=== PATIENT | female | born 2005 | race Caucasian/White ===

== ENCOUNTER 2023-05-13 15:08 | Outpatient (REF) | payer MEDICAID, SELFPAY ==
[2023-05-13 17:18] LABS: MANUAL DIFF FLAG NO
[2023-05-13 17:20] LABS: Basophils Percent Auto 0.4 % (0-2); Eosinophils Absolute Auto 0.2 X10*3/uL (0.0-0.4); Eosinophils Percent Auto 2.7 % (0-4); Hematocrit 36.7 % (37.0-47.0); Hemoglobin 11.8 g/dl (12.0-16.0); Imm Gran Abs Auto 0.01 X10*3/uL (0.00-0.03); Imm Gran Pct Auto 0.2 % (0.0-0.4); Lymphocytes Absolute Auto 1.8 X10*3/uL (1.2-4.9); Lymphocytes Percent Auto 32.3 % (20-40); Mean Corpuscular HGB Conc 32.2 g/dl (31.0-35.0); Mean Corpuscular Hemoglobin 26.9 pg (27.0-33.0); Mean Corpuscular Volume 83.6 fL (80.0-98.0); Mean Platelet Volume 10.6 fL (9.4-12.3); Monocytes Absolute Auto 0.3 X10*3/uL (0.1-1.2); Monocytes Percent Auto 5.4 % (2-11); Neutrophils Absolute Auto 3.3 x10*3/uL (2.0-8.3); Platelet Count 311 X10*3/uL (160-400); Red Blood Count 4.39 X10*6/uL (4.20-5.50); White Blood Count 5.5 X10*3/uL (4.8-10.8)
[2023-05-13 17:37] LABS: Anion Gap 11 (12-20); Blood Urea Nitrogen 10 mg/dL (9-16); Calcium 9.8 mg/dL (8.4-10.2); Carbon Dioxide 26 mmol/L (22-29); Chloride 107 mmol/L (96-108); Estimated Glomerular Filt Rate > 60; Glucose Random 90 mg/dL (60-115); Potassium 4.1 mmol/L (3.3-5.1); Sodium 140 mmol/L (135-145)
[2023-05-13 17:54] LABS: Vitamin D 25-OH Total 11.8 ng/mL (>30)
[2023-05-13 18:02] LABS: Vitamin B12 298 pg/mL (200-900)
[2023-05-15 22:14] LABS: TS Negative Control Passed; TS Panel A 0; TS Panel B 0; TS Positive Control Passed; TSpotTB Negative (Negative)
[2023-05-21 13:58] LABS: ANA Titer 2 1:40 titer; Anti Nuclear Antibody Pattern Mitotic, Centrosome; Anti Nuclear Antibody Screen POSITIVE (NEGATIVE); Anti Nuclear Antibody Titer 1:40 titer
== END 2023-05-13 15:09 | disposition home or self-care (01) ==
LOC: HO.CHCLDS 15:08
PROVIDERS: Visit Provider Pediatrics
DX: Z11.1 Encounter for screening for respiratory tuberculosis (principal); L65.9 Nonscarring hair loss, unspecified
CPT/HCPCS: 36415; 80048; 82306; 82607; 85025; 86038; 86039; 86481

== ENCOUNTER 2023-08-23 15:00 | Outpatient (AMB) | payer MEDICAID, SELFPAY ==
--- NOTE | 2023-08-23 15:02 | MHC.OFFVIS ---
Intake Vital Signs 08/23/23 15:03 Height 5 ft 6 in Weight 144 lb 6.444 oz BMI 23.3 BP 104/60 Blood Pressure Location Rt brachial Position Sitting Pulse 111 H Pulse Source Pulse Oximeter Intake Visit Reasons: + LYNNETTE Intake Note: New pt presents today for +LYNNETTE consult. C/o hair loss Grocery Manager Required: No Accompanied by: Self / Same As Patient Allergies No Known Allergies Allergy (Verified 08/23/23 15:04) Medication List - Last Reconciled 08/23/23 by Mayra Wall MD cetirizine 10 mg PO DAILY PRN ergocalciferol (vitamin D2) 1,250 mcg PO QWEEK HPI HPI Comments History of Present Illness Details This is a 18-year-old Citizen Of The [place] female who presents for evaluation of a positive LYNNETTE. Patient stated that she went to [facility] and this summer, she spent about 3 months. It was for her sister's wedding. She states that she does not go to [facility] frequently. She states that when she is there. She cannot eat well as the food is too spicy and there is plenty of street food. She lost about 20 lb while in [place] and she was feeling weak. She also had lice in her hair, this was treated with shampoo. When [place] the [place] in the middle of April she had lost about 20 lb. She is gaining the weight back, she gained about 14 lb back. She was having hair loss. She was evaluated by her PCP and labs showed a positive LYNNETTE. She states that she has been using or else for her hair and the hair loss has almost resolved. She mentions that she had recurrent ear infections as a child. She had 2 ear infections while in [place] had fevers and required 2 courses of antibiotics. She states that she has been having intermittent rashes on her nose, sometimes itchy. She denies any current fevers. She denies any mouth ulcers. She has never been or attempt . She denies any history of DVT/PE. Denies any blood or froth in urine, denies any history suggestive of Raynaud's. She is unaware of any family history of an autoimmune rheumatic disease. 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 Female Reproductive History Menstrual Total pregnancies: 0 Review of Systems Musc Denies arthralgias Skin/Breast Reports pruritus and Reports rash Physical Exam Vital Signs: Last Vital Signs Pulse 111 H 08/23/23 15:03 BP 104/60 08/23/23 15:03 BMI result Body Mass Index 23.3 Const General: cooperative, healthy appearing and comfortable Nutritional Appearance: average body habitus Orientation/consciousness: patient oriented x3 Limitations: no limitations HEENT Head: Yes normocephalic and Yes atraumatic Mouth: moist mucous membranes Resp Effort & Inspection: normal respiratory effort and able to speak in complete sentences Auscultation: clear to auscultation bilaterally Cardio Rate: regular rate Rhythm: regular rhythm GI Inspection: No distended Palpation (GI): Soft to palpation Skin Other: Erythematous rashes on her nose Neuro General: patient oriented x3 Extrem Other: Mildly hyper flexible No active synovitis Normal nailfold capillaroscopy Assessment & Plan Assessment & Plan (1) LYNNETTE positive: Code(s): R76.8 - Other specified abnormal immunological findings in serum Plan: This is a 18-year-old female who presents for evaluation of a positive LYNNETTE. History of weight loss while in back is sent for 3 months (generally cannot eat much food over there.) She has a few rashes on her face, she had history of hair loss but it seems to have resolved. Will order comprehensive serology to evaluate for underlying autoimmune rheumatic disease. Follow-up after blood work is completed Plan I spent 46 minutes reviewing patient's chart, evaluating patient, ordering diagnostic workup, counseling patient and documenting in the chart Orders: Orders Anti Extractable Nuclear Ag Today M32.9 - Systemic lupus erythematosus, unspecified Anti DNA DS Antibody Today M32.9 - Systemic lupus erythematosus, unspecified Erythrocyte Sedimentation Rate Today M32.9 - Systemic lupus erythematosus, unspecified Complete Blood Count Auto Diff Today M32.9 - Systemic lupus erythematosus, unspecified Beta-2 Glycoprotein Antibody Today D68.61 - Antiphospholipid syndrome Cardiolipin Antibodies Today D68.61 - Antiphospholipid syndrome Lupus Anticoagulant Panel Today D68.61 - Antiphospholipid syndrome Thyroglobulin Antibodies Today E07.9 - Disorder of thyroid, unspecified Complement C4 Today M32.9 - Systemic lupus erythematosus, unspecified Complement C3 Today M32.9 - Systemic lupus erythematosus, unspecified DNA Double Stranded-Crithidia Today M32.9 - Systemic lupus erythematosus, unspecified Protein Creatinine Ratio, Ur Today M32.9 - Systemic lupus erythematosus, unspecified Sjogren's Antibodies Today M32.9 - Systemic lupus erythematosus, unspecified UA w Microscopic Today M32.9 - Systemic lupus erythematosus, unspecified Comprehensive Met. Panel Today M32.9 - Systemic lupus erythematosus, unspecified C Reactive Protein Today M32.9 - Systemic lupus erythematosus, unspecified Rheumatoid Factor Today M32.9 - Systemic lupus erythematosus, unspecified Thyroid Peroxidase Antibodies Today E07.9 - Disorder of thyroid, unspecified TSH reflex Free T4 Today E07.9 - Disorder of thyroid, unspecified Coding Level of Care Code New Pt Level 4 (66170) Diagnoses LYNNETTE positive R76.8
[2023-08-23 15:03] VITALS: BP 104/60; PULSE 111; BMI 23.3
== END 2023-08-23 15:32 | disposition home or self-care (01) ==
PROVIDERS: PCP Pediatrics; Referring Provider Pediatrics; Visit Provider Student in an Organized Health Care Education/Training Program
DX: R76.8 Other specified abnormal immunological findings in serum (principal)
CPT/HCPCS: 99204

== ENCOUNTER → 2023-08-23 15:00 | Outpatient (BNVA) | payer MEDICAID, SELFPAY | PROVIDERS: PCP Pediatrics; Referring Provider Pediatrics; Visit Provider Student in an Organized Health Care Education/Training Program | DX: R76.8 Other specified abnormal immunological findings in serum (principal) | CPT/HCPCS: 99202 ==

== ENCOUNTER 2023-09-15 11:50 | Outpatient (REF) | payer MEDICAID, SELFPAY ==
[2023-09-15 12:18] LABS: MANUAL DIFF FLAG NO
[2023-09-15 12:24] LABS: Basophils Percent Auto 0.5 % (0-2); Eosinophils Absolute Auto 0.1 X10*3/uL (0.0-0.4); Eosinophils Percent Auto 2.1 % (0-4); Hematocrit 38.2 % (37.0-47.0); Hemoglobin 12.6 g/dl (12.0-16.0); Imm Gran Abs Auto 0.01 X10*3/uL (0.00-0.03); Imm Gran Pct Auto 0.2 % (0.0-0.4); Lymphocytes Absolute Auto 2.4 X10*3/uL (1.2-4.9); Lymphocytes Percent Auto 41.7 % (20-40); Mean Corpuscular Hemoglobin 27.6 pg (27.0-33.0); Mean Corpuscular Volume 83.8 fL (80.0-98.0); Mean Platelet Volume 9.9 fL (9.4-12.3); Monocytes Absolute Auto 0.2 X10*3/uL (0.1-1.2); Monocytes Percent Auto 3.5 % (2-11); Platelet Count 289 X10*3/uL (160-400); Red Blood Count 4.56 X10*6/uL (4.20-5.50); Red Cell Distribution Width 13.3 % (11.0-16.0); White Blood Count 5.7 X10*3/uL (4.8-10.8)
[2023-09-15 12:50] LABS: Rheumatoid Factor < 13.0 IU/mL (<15.0)
[2023-09-15 13:02] LABS: Alanine Aminotransferase 11 U/L (0-31); Albumin Level 4.5 g/dL (3.5-5.0); Alkaline Phosphatase 70 U/L (39-117); Anion Gap 14 (12-20); Aspartate Amino Transferase 18 U/L (5-31); Bilirubin Total 0.4 mg/dL (0.0-1.0); Blood Urea Nitrogen 13 mg/dL (9-16); C Reactive Protein 0.56 mg/dL (< or = 0.50); Calcium 9.3 mg/dL (8.4-10.2); Carbon Dioxide 23 mmol/L (22-29); Chloride 107 mmol/L (96-108); Estimated Glomerular Filt Rate > 60; Glucose Random 95 mg/dL (60-115); Potassium 3.8 mmol/L (3.3-5.1); Sodium 140 mmol/L (135-145); Total Protein 7.9 g/dL (6.5-8.0)
[2023-09-15 13:16] LABS: Erythrocyte Sedimentation Rate 16 MM/HR (0-20)
[2023-09-17 02:28] LABS: Thyroglobulin Antibodies 1 IU/mL (< or = 1); Thyroid Peroxidase Antibodies 13 IU/mL (<9)
[2023-09-17 10:38] LABS: Complement C3 161 mg/dL (83-193)
[2023-09-17 13:24] LABS: Anti DNA DS Antibody <1 IU/mL; Antibody to SS-A Antigen <1.0 NEG AI (<1.0 NEG); Antibody to SS-B Antigen <1.0 NEG AI (<1.0 NEG); SM/Ribonucleoprotein Ab <1.0 NEG AI (<1.0 NEG); Smith Protein <1.0 NEG AI (<1.0 NEG)
[2023-09-17 13:28] LABS: Cardiolipin IgG Ab <2.0 GPL-U/mL; Cardiolipin IgM Ab <2.0 MPL-U/mL
[2023-09-20 10:48] LABS: Cyclic Citrullinated Peptide <16 UNITS
[2023-09-22 08:09] LABS: DNAds, Crithidia Antibody Negative (Negative)
[2023-09-22 21:34] LABS: PTT (LAC) Screen 35 sec (<=40)
[2023-09-23 15:59] LABS: Beta-2 Glycoprotein IgA <2.0 U/mL (<20.0); Beta-2 Glycoprotein IgG <2.0 U/mL (<20.0); Beta-2 Glycoprotein IgM <2.0 U/mL (<20.0)
== END 2023-09-15 11:51 | disposition home or self-care (01) ==
LOC: HO.LAB 11:50
PROVIDERS: PCP Pediatrics; Visit Provider Student in an Organized Health Care Education/Training Program
DX: M32.9 Systemic lupus erythematosus, unspecified (principal); M25.50 Pain in unspecified joint; D68.61 Antiphospholipid syndrome; E07.9 Disorder of thyroid, unspecified
CPT/HCPCS: 36415; 80053; 84443; 85025; 85597; 85598; 85613; 85652; 85730; 86140; 86146; 86147; 86160; 86200; 86225; 86235; 86255; 86376; 86431; 86800

== ENCOUNTER 2023-10-26 14:28 | Outpatient (REF) | payer MEDICAID, SELFPAY ==
[2023-10-27 02:28] LABS: HBS Num1 > 1000.00 mIU/mL (0-7.99); ~Hepatitis B Surface Antibody REACTIVE (Nonreactive)
== END 2023-10-26 14:29 | disposition home or self-care (01) ==
LOC: HO.CHCLDS 14:28
PROVIDERS: Visit Provider Pediatrics
DX: Z11.59 Encounter for screening for other viral diseases (principal)
CPT/HCPCS: 36415; 86706